=== PATIENT | female | born 1965 ===

== ENCOUNTER 2019-10-27 11:18 | Emergency (ER) | payer BC ==
[2019-10-27 11:30] VITALS: BP 142/90
--- NOTE | 2019-10-27 11:30 | UC ---
Throat Pain/Nasal Sumeet HPI - HPI Summary HPI Summary: Patient is a 54 year old female, who present today to the urgent care with for past days. She reports one week of cough head congestion, now has a very painful sore thoat / head pressure Denies any fever. Denies any chest pain or shortness of breath . Denies any abdominal pain , nausea or vomiting , diarrhea or constipation. - History of Current Complaint Stated Complaint: THROAT PAIN Time Seen by Provider: 10/27/19 11:28 Hx Obtained From: Patient ?: No - Allergies/Home Medications Allergies/Adverse Reactions: Allergies Allergy/AdvReac Type Severity Reaction Status Date / Time No Known Allergies Allergy Verified 10/27/19 11:30 PMH/Surg Hx/FS Hx/Imm Hx - Additional Past Medical History Additional PMH: Past Medical History : Hypertension, was on meds but not anymore Past Surgical History: Uterine ablation Family History : non contributory Social History : No alcohol, non smoker, no drug use. Previously Healthy: Yes - Family History Known Family History: Positive: Non-Contributory Review of Systems All Other Systems Reviewed And Are Negative: Yes Constitutional: Positive: Negative Skin: Positive: Negative Eyes: Positive: Negative ENT: Positive: Sore Throat, Other - Condition. Negative: Ear Ache Respiratory: Positive: Cough Cardiovascular: Positive: Negative Gastrointestinal: Positive: Negative Genitourinary: Positive: Negative Motor: Positive: Negative Neurovascular: Positive: Negative Musculoskeletal: Positive: Negative Neurological: Positive: Headache Psychological: Positive: Negative Is Patient Immunocompromised?: No Physical Exam - Summary Physical Exam Summary: Physical Exam: Const: Appears well. No signs of apparent distress present. Alert and oriented x 3. Musculo: Walks with a normal gait. Head/Face: Atraumatic, normocephalic on inspection. Eyes: EOMI and PERRLA in both eyes. Conjunctivae clear. No discharge noted ENT: Hearing normal, TM normal appearing bilaterally, non bulging , non erythematous . There is pharyngeal erythema without any exudates . Uvula is midline. there is bilateral submandibular lymphadenopathy noted. Respiratory: Respirations are unlabored. Lungs clear to auscultation bilaterally, no wheezing , rhonchi or rales noted . CVS: Regular rate and Rhythm, S1S2 normal , no murmurs identified. Extremities: Peripheral circulation is grossly normal. Pulses 2+ Abdomen : Soft non tender , nondistended , Bowel sounds present . No guarding , rebound tenderness or rigidity noted. Skin: No lesions or rash located on the upper extremities or on the lower extremities. Neuro: Cranial nerves II to XII intact, motor and sensory intact. DTR Intact bilaterally. Mood is normal. Affect is normal. Triage Information Reviewed: Yes Vital Signs Reviewed: Yes Throat Pain/Nasal Course/Dx - Course Course Of Treatment: During the visit today, we obtained a rapid strep test which was negative . We discussed the findings - suspect viral etiology of sore throat. I will prescribe Tessalon to the pharmacy . I also discussed that since it is viral and antibiotics are not helpful but if her symptoms continue to last for 3 more days she can fill the antibiotic that I am sending today but if she starts to feel better she should not feel that antibiotic. Patient expressed understanding . - Differential Dx/Diagnosis Provider Diagnosis: Viral syndrome Discharge ED - Sign-Out/Discharge Documenting (check all that apply): Patient Departure All imaging exams completed and their final reports reviewed: No Studies - Discharge Plan Condition: Stable Disposition: HOME Prescriptions: Amoxicillin PO (*) [Amoxicillin 875 MG (*)] 875 mg PO BID 10 Days #20 tab Benzonatate CAP* [Tessalon 100 MG CAP*] 100 mg PO TID PRN 10 Days #30 cap PRN Reason: Cough Patient Education Materials: Viral Syndrome (ED) Referrals: Aggie Mccauley MD [Primary Care Provider] - 1 Week Additional Instructions: Please start taking the medication as prescribed to the pharmacy for your cough. Throat lozenges and salt water gargles will be helpful. I have prescribed antibiotic to the pharmacy which she should fill if no improvement after 2-3 days Follow up with your primary care doctor in 1 week Patients blood pressure slightly high in Urgent care today , plan follow up with PCP for better control Return to Urgent care / ER if symptoms get worse. - Billing Disposition and Condition Condition: STABLE Disposition: Home
== END 2019-10-27 12:00 | disposition home or self-care (01) ==
LOC: UCEAST 11:18
DX: B34.9 Viral infection, unspecified (principal); R05 Cough; R51 Headache; I10 Essential (primary) hypertension; J02.9 Acute pharyngitis, unspecified
CPT/HCPCS: 87651; 99212; G0463

== ENCOUNTER 2020-05-27 13:09 | Observation (INO) ==
[2020-05-27] MEDS ORDERED: NS 0.9% 1000 ml BAG 1,000 ML IV ONE (13:23)
[2020-05-27] MEDS ORDERED: Iodixanol (CONTRAST) 320 MG/ML 100 ML SDV IV ONE (13:39)
[2020-05-27 13:54] LABS: ABS Lymphocytes 0.6 10^3/ul (1.0-4.8); ABS Monocytes 0.2 10^3/ul (0-0.8); ABS Neutrophils 6.8 10^3/ul (1.5-7.7); Eosinophil % 0.1 %; Hematocrit 39 % (35-47); Hemoglobin 13.1 g/dL (12.0-16.0); Lymphocyte % 8.2 %; Mean Corpuscular HGB Conc 34 g/dL (31-36); Mean Corpuscular Hemoglobin 28 pg (27-31); Mean Corpuscular Volume 83 fL (80-97); Nucleated Red Blood Cells % 0.1; Platelet Count 295 10^3/uL (150-450); Red Blood Count 4.65 10^6 /uL (3.70-4.87); Red Cell Distribution Width 14 % (10-15); White Blood Count 7.7 10^3/uL (3.5-10.8)
[2020-05-27 14:04] LABS: Activated Partial Thrombo Time 27.9 seconds (26.0-38.0); INR 1.04 (0.82-1.09)
[2020-05-27 14:14] LABS: Albumin 4.2 g/dL (3.2-5.2); Albumin/Globulin Ratio 1.2 (1-3); BUN/Creatinine Ratio 9.9 (8-20); Calcium 9.7 mg/dL (8.6-10.3); EGFR African American 89.2 (>60); EGFR Non-African American 73.7 (>60); Globulin 3.5 g/dL (2-4); HDL Cholesterol 57.9 mg/dL; Potassium 3.8 mmol/L (3.5-5.0); Total Bilirubin 0.4 mg/dL (0.2-1.0); Total Protein 7.7 g/dL (6.4-8.9)
[2020-05-27] MEDS ORDERED: Ondansetron 4 mg VIAL 2 MG/ML 2 ml VIAL IV ONE (14:35)
[2020-05-27] MEDS ORDERED: Aspirin EC 81 mg TAB.EC (enteric coated) PO ONE (14:40)
[2020-05-27] MEDS ORDERED: Ondansetron 4 mg VIAL 2 MG/ML 2 ml VIAL IV PRN (15:26)
[2020-05-27] MEDS: NS 0.9% 1000 ml BAG 1,000 ML IV SCH (17:35)
[2020-05-28 02:22] LABS: Urine Appearance Clear; Urine Bilirubin Negative (Negative); Urine Blood 1+ (Negative); Urine Color Yellow; Urine Glucose Negative (Negative); Urine Ketones Negative (Negative); Urine Nitrite Negative (Negative); Urine Protein Negative (Negative); Urine Specific Gravity 1.014 (1.010-1.030); Urine Urobilinogen Negative (Negative)
[2020-05-28 02:24] LABS: Urine Bacteria Absent (Absent); Urine Red Blood Cell Trace(0-2/hpf) (Absent); Urine Squamous Epithelial Cell Present (Absent); Urine White Blood Cell Trace(0-5/hpf) (Absent)
[2020-05-28 07:00] LABS: ABS Eosinophils 0.1 10^3/ul (0-0.6); ABS Monocytes 0.6 10^3/ul (0-0.8); ABS Neutrophils 4.6 10^3/ul (1.5-7.7); Eosinophil % 0.8 %; Hematocrit 34 % (35-47); Hemoglobin 11.6 g/dL (12.0-16.0); Lymphocyte % 27.8 %; Mean Corpuscular HGB Conc 34 g/dL (31-36); Mean Corpuscular Hemoglobin 29 pg (27-31); Mean Corpuscular Volume 84 fL (80-97); Mean Platelet Volume 8.4 fL (7.4-10.4); Platelet Count 261 10^3/uL (150-450); Red Blood Count 4.08 10^6 /uL (3.70-4.87); Red Cell Distribution Width 14 % (10-15); White Blood Count 7.2 10^3/uL (3.5-10.8)
[2020-05-28 07:15] LABS: BUN/Creatinine Ratio 8.5 (8-20); Calcium 8.9 mg/dL (8.6-10.3); EGFR African American 87.9 (>60); EGFR Non-African American 72.6 (>60); Potassium 3.5 mmol/L (3.5-5.0)
[2020-05-28] MEDS: NS 0.9% 1000 ml BAG 1,000 ML IV SCH (08:21)
[2020-05-28 16:29] LABS: TSH Ultra Thyroid Stim Horm 2.35 mcIU/mL (0.34-5.60)
[2020-05-28 17:02] VITALS: BP 142/75
[2020-06-04 13:21] LABS: NMO/AQP4 IgG Negative (Negative)
== END 2020-05-28 18:12 | disposition home or self-care (01) ==
LOC: MEDTELE 13:09 → ED 13:09
PROVIDERS: ADMIT Internal Medicine; ATTEND Hospitalist